=== PATIENT | female | born 1950 | race Asian ===

== ENCOUNTER 2025-02-16 20:12 | Emergency (ER) | payer OTHER ==
[~2025-02-16] VITALS: Ht 154.9 cm; Wt 57.0 kg
[2025-02-16 20:24] VITALS: O2SAT 98
[2025-02-16 20:28] VITALS: TEMP 36.7
[2025-02-16] MEDS ORDERED: ACETAMINOPHEN 500MG TABLET PO ONE (20:45)
[2025-02-16] MEDS ORDERED: LIDO-53 TP (22:25)
[2025-02-16] MEDS ORDERED: NAPR-1176 MT (22:25)
[2025-02-16 22:34] VITALS: TEMP 98.1
[2025-02-16] MEDS: ACETAMINOPHEN 500MG TABLET PO SCH (22:34)
[2025-02-16] MEDS: LIDOCAINE 5% PATCH TOP SCH (22:35)
[2025-02-17 00:49] VITALS: BP 176/63; PULSE 60; RESP 18; O2SAT 100
== END 2025-02-17 00:51 | disposition home or self-care (01) ==
LOC: ER 20:12
DX: M25.522 Pain in left elbow (principal); R07.81 Pleurodynia; M54.2 Cervicalgia; E11.9 Type 2 diabetes mellitus without complications; E78.00 Pure hypercholesterolemia, unspecified; I10 Essential (primary) hypertension; Z79.1 Long term (current) use of non-steroidal anti-inflammatories (NSAID); Z88.0 Allergy status to penicillin; Z88.1 Allergy status to other antibiotic agents; Z88.2 Allergy status to sulfonamides; V89.2XXA Person injured in unspecified motor-vehicle accident, traffic, initial encounter; Y93.89 Activity, other specified; Y92.410 Unspecified street and highway as the place of occurrence of the external cause; Y99.8 Other external cause status
CPT/HCPCS: 71101; 73080; 99284